=== PATIENT | female | born 1980 | race Caucasian/White ===

== ENCOUNTER 2025-05-05 11:57 | Emergency (ER) | payer BC, SELFPAY ==
[2025-05-05 12:02] VITALS: BP 118/77; PULSE 72; TEMP 37.1; O2SAT 100; BMI 29.2
--- OUTSIDE RECORDS SUMMARY | 2025-05-05 12:10 | XMS_ITS | Patient Health Record ---
Author Organization [facility] Address [address] [place] [address] Care Team Providers Care Account Development Specialist Name Role Phone Gus Moreira Unavailable [phone] Allergies Allergen (clinical drug ingredient) Drug/Non Drug Allergy documented on EMR Reaction Allergy Type Onset Date Status amoxicillin amoxicillin Yeast Infections Drug Allergy Active Reason For Referral No Information Medications Medication SIG (Take, Route, Fr equency, Duration) Notes Start Date End Date Status doxycycline Not-Taki ng Wellbutrin Active propranolol Not-Taki ng Xanax Not-Taking Social History Tobacco Use: Social History Observation Description Date Details (start date - stop date) Never Smoker NA - NA Smoking History Question Answer Notes Smoking Status NonSmoker Problems Problem Type SNOMED Code ICD Code Onset Dates Problem Status W/U Status Risk Notes Problem 91342354 Other hammer toe(s) (acquired), right foot (M20.41) Active confirmed Problem 134345193294797 Metatarsalgia, right foot (M77.41) Active confirmed Problem 217686495313401 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 CEM BAHENA Self - patient is the insured Medical (General) History Medical History History ICD Code Depression: Yes Anxiety: Yes Surgical History Surgery Date(Month/Year) Neuroma 2021 Randy osteotomy with PIPJ arthrodesis and excision of neuroma 06/02/2022 Lg Toe screwed 2020 Hysterectomy 2014
--- NOTE | 2025-05-05 12:11 | CT_ITS ---
The [address] [address] Patient Name: CEM BAHENA MRN: [id number] date: 1980 Sex: F Assigned Patient Location: ED.MAIN Current Patient Location: ED.MAIN Accession/Order Number: [id number] Exam Date: 05/05/2025 12:58 Report Date: 05/05/2025 13:03 At the request of: [facility] MD Procedure: CT pelvis wo con CT LUMBAR SPINE WITHOUT CONTRAST TECHNIQUE: Axial acquisition of the lumbar spine obtained with the sagittal and coronal reconstructed imaging.The CT exam was performed using one or more the following dose reduction techniques: Automated exposure control, adjustment of the MA and/or Kv according to patient size, or use of the iterative reconstruction technique. HISTORY: Right-sided lumbar back pain extending into the right hip. Fell last week. COMPARISON: None FINDINGS: The last fully segmented vertebral pair is operationally defined as L5/S1. POST SURGERY CHANGES: None BONY ALIGNMENT: Adequate bony alignment identified. SPINAL CANAL:Patent bony central canal LUMBAR FRACTURE: None BONY LESIONS: Benign sclerotic bony island right iliac bone KIDNEYS: No hydronephrosis is identified. AORTA: No aortic aneurysm is seen. Lower thoracic level: Unremarkable L1-2:Unremarkable L2-3: Unremarkable L3-4:Mild disc space narrowing. Moderate facet degeneration. Patent bony central canal and neural foramen L4-5:Mild spondylosis. Moderate facet degeneration. Patent bony central canal. Moderate bilateral bony neural foraminal narrowing L5-S1:Mild spondylosis. Moderate facet degeneration. Patent bony central canal. Mild bilateral bony neural foraminal narrowing Assessment of disc herniation limited with CT examination. No obvious disc herniation seen with CT exam. CT/CT pelvis wo con IMPRESSION:Moderate lower lumbar degenerative changes. No acute bony findings CT of the pelvis without contrast Adequate bony alignment and no acute displaced fracture. Mild degeneration. No soft tissue hematoma. No subcutaneous air. No radiodense foreign body. Unremarkable intrapelvic structures. IMPRESSION: No acute displaced fracture. Impression dictated by: Santi Hu M.D. 05/05/2025 1:03 PM Dictation Location: [place] [address] Electronically authenticated by: [id number] Y Date: 05/05/2025 13:03
--- NOTE | 2025-05-05 12:11 | CT_ITS ---
The [address] [address] Patient Name: CEM BAHENA MRN: [id number] date: 1980 Sex: F Assigned Patient Location: ED.MAIN Current Patient Location: ED.MAIN Accession/Order Number: [id number] Exam Date: 05/05/2025 12:58 Report Date: 05/05/2025 13:03 At the request of: [facility] MD Procedure: CT pelvis wo con CT LUMBAR SPINE WITHOUT CONTRAST TECHNIQUE: Axial acquisition of the lumbar spine obtained with the sagittal and coronal reconstructed imaging.The CT exam was performed using one or more the following dose reduction techniques: Automated exposure control, adjustment of the MA and/or Kv according to patient size, or use of the iterative reconstruction technique. HISTORY: Right-sided lumbar back pain extending into the right hip. Fell last week. COMPARISON: None FINDINGS: The last fully segmented vertebral pair is operationally defined as L5/S1. POST SURGERY CHANGES: None BONY ALIGNMENT: Adequate bony alignment identified. SPINAL CANAL:Patent bony central canal LUMBAR FRACTURE: None BONY LESIONS: Benign sclerotic bony island right iliac bone KIDNEYS: No hydronephrosis is identified. AORTA: No aortic aneurysm is seen. Lower thoracic level: Unremarkable L1-2:Unremarkable L2-3: Unremarkable L3-4:Mild disc space narrowing. Moderate facet degeneration. Patent bony central canal and neural foramen L4-5:Mild spondylosis. Moderate facet degeneration. Patent bony central canal. Moderate bilateral bony neural foraminal narrowing L5-S1:Mild spondylosis. Moderate facet degeneration. Patent bony central canal. Mild bilateral bony neural foraminal narrowing Assessment of disc herniation limited with CT examination. No obvious disc herniation seen with CT exam. CT/CT lumbar spine wo con IMPRESSION:Moderate lower lumbar degenerative changes. No acute bony findings CT of the pelvis without contrast Adequate bony alignment and no acute displaced fracture. Mild degeneration. No soft tissue hematoma. No subcutaneous air. No radiodense foreign body. Unremarkable intrapelvic structures. IMPRESSION: No acute displaced fracture. Impression dictated by: Santi Hu M.D. 05/05/2025 1:03 PM Dictation Location: [email or web address] Electronically authenticated by: [id number] Y Date: 05/05/2025 13:03
--- NOTE | 2025-05-05 12:14 | ED_ITS ---
HPI HPI - General Adult General Chief complaint: Back Pain/Injury Stated complaint: FALL 04/24/2025; BACK PAIN, R HIP & R LEG PAIN Time Seen by Provider: 05/05/25 12:07 Source: patient Mode of arrival: walk-in Limitations: no limitations History of Present Illness HPI narrative: 45-year-old female presents for right buttock area pain. 11 days ago she was hiking up [place] and she fell and she did not think she hurt herself too much at that time. The next day it hurt a great deal and its continued to do so in the intervening 11 days. She has been to a chiropractor and she tried to get into see her family doctor today. She is been able to ambulate but the pain is persistent and not getting better so she came in to get checked. No other injury was sustained. Related Data Previous Rx's ?Medication ?Instructions ?Recorded acetaminophen 300 mg-codeine 30 mg 1 tab PO Q6H PRN pa in 5 days #20 05/05/25 tablet tabs Allergies Allergy/AdvReac Type Severity Reaction Status Date / Time No Known Drug Allergies Allergy Verified 05/05/25 12:02 Opioid HPI Opioid Management Most Recent Opioid Data: Last Pain Scale 8 Today, 12:02 Review of Systems ROS Narrative A ten point review of systems is negative except as noted above. PFSH PFSH Social History Little interest or pleasure in doing things: not at all Feeling down, depressed, or hopeless: not at all Exam Narrative Exam Narrative: Nurses note and vital signs reviewed and patient is not hypoxic. General: The patient appears in no apparent distress. Patient is standing when I walk into the Skin: Warm, dry, no pallor noted. There is no rash noted. Head: Normocephalic, atraumatic Eye: Normal conjunctiva, no drainage Ears, Nose, Mouth, and Throat: oral mucosa is moist. Nares patent. Cardiovascular: Regular Rate and Rhythm Respiratory: Patient is in no distress, no accessory muscle use, lungs are clear to auscultation, no wheezing, rales or rhonchi Back: She has tenderness in the right superior buttock region. There is no abrasion. Hip has good range of motion. GI: Soft and nontender Musculoskeletal: Right leg is not swollen Neurological: A&O, normal speech Psychiatric: Cooperative Constitutional Vital Signs, click to edit/add: Last Vital Signs Temp 98.7 F 05/05/25 12:02 Pulse 72 05/05/25 12:02 Resp 18 05/05/25 12:02 BP 118/77 05/05/25 12:02 Pulse Ox 100 05/05/25 12:02 O2 Del Method Room Air 05/05/25 12:02 Course Vital Signs Vital signs: Vital Signs Temperature 98.7 F 05/05/25 12:02 Pulse Rate 72 05/05/25 12:02 Respiratory Rate 18 05/05/25 12:02 Blood Pressure 118/77 05/05/25 12:02 Pulse Oximetry 100 05/05/25 12:02 Oxygen Delivery Method Room Air 05/05/25 12:02 Temperature 98.7 F 05/05/25 12:02 Pulse Rate 72 05/05/25 12:02 Respiratory Rate 18 05/05/25 12:02 Blood Pressure 118/77 05/05/25 12:02 Pulse Oximetry 100 05/05/25 12:02 Oxygen Delivery Method Room Air 05/05/25 12:02 Medical Decision Making MDM Narrative Medical decision making narrative: CTs are negative. She was prescribed Tylenol 3. Treatment diagnosis and follow-up were discussed with the patient. Differential Diagnosis Differential Diagnosis: Contusion, fracture Imaging Data CT lumbar, CT pelvis: Radiologist's impression: ITS Impressions Lumbar Spine CT 05/05/25 12:11 IMPRESSION:Moderate lower lumbar degenerative changes. No acute bony findings CT of the pelvis without contrast Adequate bony alignment and no acute displaced fracture. Mild degeneration. No soft tissue hematoma. No subcutaneous air. No radiodense foreign body. Unremarkable intrapelvic structures. IMPRESSION: No acute displaced fracture. Impression dictated by: Santi Hu M.D. 05/05/2025 1:03 PM Dictation Location: [place] [address] Electronically authenticated by: [id number] Y Date: 05/05/2025 13:[address] 05/05/25 12:11 IMPRESSION:Moderate lower lumbar degenerative changes. No acute bony findings CT of the pelvis without contrast Adequate bony alignment and no acute displaced fracture. Mild degeneration. No soft tissue hematoma. No subcutaneous air. No radiodense foreign body. Unremarkable intrapelvic structures. IMPRESSION: No acute displaced fracture. Impression dictated by: Santi Hu M.D. 05/05/2025 1:03 PM Dictation Location: [place] [address] Electronically authenticated by: [id number] Y Date: 05/05/2025 13:03 Discharge Plan Discharge Chief Complaint: Back Pain/Injury Clinical Impression: Contusion of hip, right Patient Disposition: Home, Self-Care Time of Disposition Decision: 13:28 Condition: Good Mode of Transportation: Private Vehicle Prescriptions / Home Meds: New acetaminophen-codeine 300-30 mg tablet 1 tab PO Q6H PRN (Reason: pain) 5 Days Qty: 20 0RF Print Language: Uzbek Instructions: Hip Contusion (ED) Referrals: DANNI FUNK [Primary Care Provider, Family Practice] - 1 week
== END 2025-05-05 13:34 | disposition home or self-care (01) ==
PROVIDERS: Emergency Provider Emergency Medicine; PCP Family Medicine
DX: S70.01XA Contusion of right hip, initial encounter (principal); W19.XXXA Unspecified fall, initial encounter; Y93.01 Activity, walking, marching and hiking; M47.816 Spondylosis without myelopathy or radiculopathy, lumbar region
CPT/HCPCS: 72131; 72192; 99284